=== PATIENT | female | born 1965 | race Caucasian/White ===

== ENCOUNTER → 2018-01-10 | Outpatient (CLI) | payer OTHER ==
[~2018-01-10] MED LIST: ALPR0.25 PO; LEVO25TA2 PO
== END | disposition home or self-care (01) ==
LOC: CFH 10:45
PROVIDERS: ATTEND Nurse Practitioner
DX: M51.34 Other intervertebral disc degeneration, thoracic region (principal); R07.9 Chest pain, unspecified; Z85.3 Personal history of malignant neoplasm of breast
CPT/HCPCS: 71045; 72072

== ENCOUNTER 2018-03-06 21:35 | Inpatient (IN) | payer OTHER ==
[~2018-03-06] VITALS: Ht 162.6 cm; Wt 79.0 kg
[2018-03-06] MEDS ORDERED: PROMETHAZINE 25 MG/ML, 1ML ONE (23:25)
[2018-03-06] MEDS ORDERED: HYDROmorphone 2 MG/ML, 1ML ONE (23:26)
[2018-03-06] MEDS ORDERED: PROMETHAZINE 25 MG/ML, 1ML IM ONE (23:30)
[2018-03-06] MEDS ORDERED: HYDROmorphone 2 MG/ML, 1ML IVPush PRN (23:30)
[2018-03-06] MEDS ORDERED: SODIUM CHLORIDE FLUSH 10ML SYR IVF ONE (23:30)
[2018-03-06 23:32] LABS: MICROSCOPIC NOT IND
[2018-03-06 23:38] LABS: CULTURE INDICATED? NO
[2018-03-06 23:43] LABS: BASOPHILS # (AUTO) 0.01 x10^3/uL (0-0.1); BASOPHILS % (AUTO) 0 % (0-1); EOSINOPHILS # (AUTO) 0.35 x10^3/uL (0-0.4); EOSINOPHILS % (AUTO) 4 % (1-7); LYMPHOCYTES # (AUTO) 1.11 x10^3/uL (1-3.4); LYMPHOCYTES % (AUTO) 14 % (22-44); MD NO; MEAN CORPUSCULAR HEMOGLOBIN 33.6 pg (27.0-34.8); MEAN CORPUSCULAR HGB CONC 32.3 g/dL (32.4-35.8); MEAN CORPUSCULAR VOLUME 104.1 fL (80-100); MEAN PLATELET VOLUME 9.6 fL (7.4-10.4); MONOCYTES # (AUTO) 0.68 x10^3/uL (0.2-0.8); MONOCYTES % (AUTO) 9 % (2-9); NEUTROPHILS # (AUTO) 5.81 x10^3/uL (1.8-6.8); NEUTROPHILS % (AUTO) 73 % (42-75); PLATELET COUNT 154 x10^3/uL (130-400); RED BLOOD COUNT 3.17 x10^6/uL (3.82-5.3); RED CELL DISTRIBUTION WIDTH 17.4 % (9.6-15.2)
[2018-03-06 23:47] LABS: ALBUMIN 2.5 g/dL (3.4-5.0); ANION GAP 10 mmol/L (5-15); CALCIUM 8.6 mg/dL (8.5-10.1); CHLORIDE 102 mmol/L (98-107)
[2018-03-06 23:54] LABS: ALANINE AMINOTRANSFERASE 56 U/L (12-78); ALKALINE PHOSPHATASE 139 U/L (45-117); BILIRUBIN,TOTAL 1.6 mg/dL (0.2-1.0); CREATININE 0.84 mg/dL (0.55-1.02); TOTAL PROTEIN 6.6 g/dL (6.4-8.2)
[2018-03-07] MEDS ORDERED: OMNIPAQUE 350 MG/ML, 100ML BOTTLE ONE (00:17)
[2018-03-07] MEDS ORDERED: CEFOTETAN PMX 1GM/50ML 50 ML IV ONE (01:30)
[2018-03-07] MEDS ORDERED: CEFOTETAN PMX 1GM/50ML 50 ML ONE (01:54)
[2018-03-07 02:59] VITALS: BP 116/74
[2018-03-07 06:50] VITALS: BP 120/75
[2018-03-07] MEDS ORDERED: OXYcodone IR 5MG TABLET PO PRN (07:00)
[2018-03-07] MEDS ORDERED: LABETALOL 5MG/ML, 20ML IVPush PRN (07:00)
[2018-03-07] MEDS ORDERED: PROMETHAZINE 25 MG/ML, 1ML IM PRN (07:00)
[2018-03-07] MEDS ORDERED: ONDANSETRON 2MG/ML, 2ML IVPush PRN (07:00)
[2018-03-07] MEDS ORDERED: POLYETHYLENE GLYCOL 17 GM PACKET PO PRN (07:00)
[2018-03-07] MEDS ORDERED: BISACODYL 10 MG SUPP PR PRN (07:00)
[2018-03-07] MEDS ORDERED: DOCUSATE 100 MG CAPSULE PO PRN (07:00)
[2018-03-07] MEDS ORDERED: hydrALAzine 20 MG/ML, 1ML IVPush PRN (07:00)
[2018-03-07] MEDS: NICOTINE 7 MG/24 HR PATCH.TD24 TD SCH (07:00)
[2018-03-07 07:54] LABS: FREE T4 (FREE THYROXINE) 0.7 ng/dL (0.76-1.46); THYROID STIMULATING HORMONE 6.93 mIU/L (0.358-3.740)
[2018-03-07] MEDS ORDERED: LORazepam 2 MG/ML, 1ML IVPush ONE (08:00)
[2018-03-07] MEDS ORDERED: ALBUTEROL SULFATE 2.5 MG/3 ML NPPB PRN (08:00)
[2018-03-07 08:01] LABS: HEMOGLOBIN A1C 5.1 % (4.2-6.3)
[2018-03-07] MEDS: morphine SULFATE 10 MG/ML, 1ML IVPush PRN ×2 (08:09→20:56)
[2018-03-07] MEDS: ONDANSETRON ODT 4 MG PO PRN (08:10)
[2018-03-07] MEDS ORDERED: ERGOCALCIFEROL 50,000 UNIT CAPSULE PO SCH (09:30)
[2018-03-07] MEDS: HEPARIN 5,000 UNITS/ML, 1ML SQ SCH ×2 (10:12→17:54)
[2018-03-07] MEDS: METRONIDAZOLE PMX 500MG/100ML 100 ML IV SCH ×3 (10:15→22:34)
[2018-03-07] MEDS: SODIUM CHLORIDE 0.9% 1,000 ML IV SCH ×2 (10:15→22:41)
[2018-03-07] MEDS: CEFOTETAN PMX 2GM/50ML 50 ML IV SCH (13:44)
[2018-03-07 13:57] VITALS: BP 108/65
[2018-03-07] MEDS ORDERED: POTASSIUM CHLORIDE 40 MEQ in SODIUM CHLORIDE 0.9% 500 ML IV ONE (18:00)
[2018-03-07 19:57] VITALS: BP_SYST 86
[2018-03-07] MEDS ORDERED: LORazepam 2 MG/ML, 1ML IVPush PRN (23:30)
[2018-03-08] MEDS: CEFOTETAN PMX 2GM/50ML 50 ML IV SCH ×2 (01:18→13:06)
[2018-03-08] MEDS: morphine SULFATE 10 MG/ML, 1ML IVPush PRN ×5 (01:27→20:47)
[2018-03-08 03:01] VITALS: BP 100/62
[2018-03-08] MEDS: METRONIDAZOLE PMX 500MG/100ML 100 ML IV SCH ×4 (04:11→22:17)
[2018-03-08 04:52] LABS: INTERNATIONAL NORMALIZED RATIO 0.94 (0.93-1.1); PROTHROMBIN TIME 9.8 Seconds (9.6-11.5)
[2018-03-08 04:53] LABS: MEAN CORPUSCULAR HEMOGLOBIN 34.5 pg (27.0-34.8); MEAN CORPUSCULAR HGB CONC 33.2 g/dL (32.4-35.8); MEAN CORPUSCULAR VOLUME 103.9 fL (80-100); RED BLOOD COUNT 2.58 x10^6/uL (3.82-5.3); RED CELL DISTRIBUTION WIDTH 17.5 % (9.6-15.2)
[2018-03-08 04:59] LABS: CHLORIDE 111 mmol/L (98-107)
[2018-03-08 05:13] LABS: ALANINE AMINOTRANSFERASE 35 U/L (12-78); ALBUMIN 1.9 g/dL (3.4-5.0); ALKALINE PHOSPHATASE 90 U/L (45-117); ANION GAP 7 mmol/L (5-15); BILIRUBIN,TOTAL 0.6 mg/dL (0.2-1.0); CALCIUM 7.3 mg/dL (8.5-10.1); CHOL/HDL RATIO 13.5; CHOLESTEROL, TOTAL 216 mg/dL (140-239); HDL CHOL % 7 % (28-40); HDL CHOLESTEROL (DIRECT) 16 mg/dL (40-60); LDL CHOLESTEROL,CALCULATED 154 mg/dL (54-169); LDL/HDL RATIO 9.6 (0.5-3.0); TOTAL PROTEIN 5.2 g/dL (6.4-8.2); TRIGLYCERIDES 232 mg/dL (50-200); VLDL CHOLESTEROL 46 mg/dL (0-25)
[2018-03-08 05:52] LABS: BASOPHILS # (AUTO) 0.02 x10^3/uL (0-0.1); BASOPHILS % (AUTO) 0 % (0-1); EOSINOPHILS # (AUTO) 0.45 x10^3/uL (0-0.4); EOSINOPHILS % (AUTO) 9 % (1-7); LYMPHOCYTES # (AUTO) 0.89 x10^3/uL (1-3.4); LYMPHOCYTES % (AUTO) 17 % (22-44); MD SCAN; MEAN PLATELET VOLUME 9.5 fL (7.4-10.4); MONOCYTES % (AUTO) 10 % (2-9); NEUTROPHILS # (AUTO) 3.35 x10^3/uL (1.8-6.8); NEUTROPHILS % (AUTO) 64 % (42-75); PLATELET COUNT 138 x10^3/uL (130-400)
[2018-03-08] MEDS: LEVOTHYROXINE 25 MCG TABLET PO SCH ×2 (06:00→06:17)
[2018-03-08] MEDS: NICOTINE 7 MG/24 HR PATCH.TD24 TD SCH (06:25)
[2018-03-08] MEDS: SODIUM CHLORIDE 0.9% 1,000 ML IV SCH ×3 (07:00→22:17)
[2018-03-08] MEDS: ONDANSETRON ODT 4 MG PO PRN (09:00)
[2018-03-08 09:19] VITALS: BP 114/77
[2018-03-08 12:16] LABS: MICROSCOPIC NOT IND
[2018-03-08 12:21] LABS: CULTURE INDICATED? NO
[2018-03-08 13:52] VITALS: BP 129/82
[2018-03-08 19:04] VITALS: BP 129/83
[2018-03-08] MEDS: LORazepam 2 MG/ML, 1ML IVPush PRN (20:47)
[2018-03-09 00:51] VITALS: BP 132/77
[2018-03-09] MEDS: CEFOTETAN PMX 2GM/50ML 50 ML IV SCH ×2 (01:55→15:51)
[2018-03-09 02:05] VITALS: BP 135/81
[2018-03-09] MEDS: METRONIDAZOLE PMX 500MG/100ML 100 ML IV SCH ×4 (04:15→21:56)
[2018-03-09] MEDS: LEVOTHYROXINE 25 MCG TABLET PO SCH ×2 (05:33→05:34)
[2018-03-09] MEDS: morphine SULFATE 10 MG/ML, 1ML IVPush PRN ×2 (05:34→16:10)
[2018-03-09 05:44] LABS: CHLORIDE 110 mmol/L (98-107)
[2018-03-09 05:54] LABS: BASOPHILS # (AUTO) 0.02 x10^3/uL (0-0.1); BASOPHILS % (AUTO) 0 % (0-1); EOSINOPHILS # (AUTO) 0.44 x10^3/uL (0-0.4); EOSINOPHILS % (AUTO) 8 % (1-7); LYMPHOCYTES % (AUTO) 15 % (22-44); MD NO; MEAN CORPUSCULAR HEMOGLOBIN 34.8 pg (27.0-34.8); MEAN CORPUSCULAR HGB CONC 33.4 g/dL (32.4-35.8); MEAN CORPUSCULAR VOLUME 104.3 fL (80-100); MEAN PLATELET VOLUME 8.9 fL (7.4-10.4); MONOCYTES # (AUTO) 0.49 x10^3/uL (0.2-0.8); MONOCYTES % (AUTO) 9 % (2-9); NEUTROPHILS # (AUTO) 3.49 x10^3/uL (1.8-6.8); NEUTROPHILS % (AUTO) 67 % (42-75); PLATELET COUNT 166 x10^3/uL (130-400); RED BLOOD COUNT 2.51 x10^6/uL (3.82-5.3); RED CELL DISTRIBUTION WIDTH 17.9 % (9.6-15.2)
[2018-03-09 05:56] LABS: ALBUMIN 1.7 g/dL (3.4-5.0); ALKALINE PHOSPHATASE 79 U/L (45-117); ANION GAP 10 mmol/L (5-15); BILIRUBIN,TOTAL 0.7 mg/dL (0.2-1.0); CALCIUM 6.1 mg/dL (8.5-10.1); CREATININE 1.02 mg/dL (0.55-1.02); TOTAL PROTEIN 4.6 g/dL (6.4-8.2)
[2018-03-09] MEDS: NICOTINE 7 MG/24 HR PATCH.TD24 TD SCH (06:08)
[2018-03-09 06:20] VITALS: BP 120/71
[2018-03-09] MEDS: POTASSIUM CHLORIDE 40 MEQ in SODIUM CHLORIDE 0.9% 500 ML IV SCH ×2 (08:43→15:51)
[2018-03-09 09:30] LABS: ALANINE AMINOTRANSFERASE 39 U/L (12-78)
[2018-03-09] MEDS: SODIUM CHLORIDE 0.9% 1,000 ML IV SCH (10:50)
[2018-03-09] MEDS ORDERED: KETOROLAC 30 MG/1 ML IV ONE (11:00)
[2018-03-09 14:00] VITALS: BP 134/85
[2018-03-09] MEDS ORDERED: SINCALIDE (KINEVAC) 5 MCG ONE (14:33)
[2018-03-09] MEDS: METHADONE 10 MG TABLET PO SCH ×3 (15:51→21:57)
[2018-03-09 18:58] VITALS: BP 132/84
[2018-03-09] MEDS: LORazepam 2 MG/ML, 1ML IVPush PRN (23:29)
[2018-03-10 01:07] VITALS: BP 132/80
[2018-03-10] MEDS: CEFOTETAN PMX 2GM/50ML 50 ML IV SCH ×2 (01:49→14:46)
[2018-03-10] MEDS: SODIUM CHLORIDE 0.9% 1,000 ML IV SCH (01:49)
[2018-03-10] MEDS: morphine SULFATE 10 MG/ML, 1ML IVPush PRN (01:49)
[2018-03-10] MEDS: METRONIDAZOLE PMX 500MG/100ML 100 ML IV SCH ×3 (03:44→20:16)
[2018-03-10] MEDS: LEVOTHYROXINE 25 MCG TABLET PO SCH (06:00)
[2018-03-10] MEDS: NICOTINE 7 MG/24 HR PATCH.TD24 TD SCH (06:00)
[2018-03-10 06:29] VITALS: BP 126/81
[2018-03-10 08:45] LABS: ALANINE AMINOTRANSFERASE 37 U/L (12-78); ALBUMIN 2.7 g/dL (3.4-5.0); ANION GAP 9 mmol/L (5-15); CALCIUM 8.9 mg/dL (8.5-10.1); CHLORIDE 106 mmol/L (98-107); CREATININE 1.29 mg/dL (0.55-1.02)
[2018-03-10 08:47] LABS: ALKALINE PHOSPHATASE 122 U/L (45-117); BILIRUBIN,TOTAL 0.8 mg/dL (0.2-1.0); TOTAL PROTEIN 7.2 g/dL (6.4-8.2)
[2018-03-10] MEDS: METHADONE 10 MG TABLET PO SCH ×3 (09:00→22:25)
[2018-03-10 09:10] LABS: BASOPHILS # (AUTO) 0.09 x10^3/uL (0-0.1); BASOPHILS % (AUTO) 1 % (0-1); EOSINOPHILS % (AUTO) 8 % (1-7); LYMPHOCYTES # (AUTO) 1.16 x10^3/uL (1-3.4); LYMPHOCYTES % (AUTO) 15 % (22-44); MD SCAN; MEAN CORPUSCULAR HEMOGLOBIN 34.2 pg (27.0-34.8); MEAN CORPUSCULAR HGB CONC 33.1 g/dL (32.4-35.8); MEAN CORPUSCULAR VOLUME 103.3 fL (80-100); MONOCYTES # (AUTO) 0.61 x10^3/uL (0.2-0.8); MONOCYTES % (AUTO) 8 % (2-9); NEUTROPHILS # (AUTO) 5.12 x10^3/uL (1.8-6.8); NEUTROPHILS % (AUTO) 68 % (42-75); PLATELET COUNT 246 x10^3/uL (130-400); RED BLOOD COUNT 3.31 x10^6/uL (3.82-5.3); RED CELL DISTRIBUTION WIDTH 17.7 % (9.6-15.2)
[2018-03-10] MEDS ORDERED: FLUCONAZOLE 400 MG/200 ML 200 ML IV SCH (10:00)
[2018-03-10] MEDS ORDERED: BUPIVACAINE/PF 0.5% ONE (10:03)
[2018-03-10] MEDS ORDERED: EPINEPHRINE 1 MG/ML, 1ML ONE (10:03)
[2018-03-10] MEDS ORDERED: FENTANYL PF 250 MCG/5ML ONE (10:17)
[2018-03-10] MEDS ORDERED: MIDAZOLAM 1 MG/ML, 2ML ONE (10:17)
[2018-03-10] MEDS ORDERED: GLYCOPYRROLATE 0.2MG/1ML, 5ML ONE (10:30)
[2018-03-10] MEDS ORDERED: CEFAZOLIN 1,000 MG ONE (10:30)
[2018-03-10] MEDS ORDERED: ONDANSETRON ODT 8 MG PO ONE (10:30)
[2018-03-10] MEDS ORDERED: NEOSTIGMINE 1 MG/ML, 10ML ONE (10:30)
[2018-03-10] MEDS ORDERED: ROCURONIUM 10 MG/ML,10ML ONE (10:30)
[2018-03-10] MEDS ORDERED: SCOPOLAMINE PATCH, 1.5MG PATCH.TD72 TD ONE (10:30)
[2018-03-10] MEDS ORDERED: DEXAMETHASONE 4 MG/ML, 5ML ONE (10:30)
[2018-03-10] MEDS ORDERED: OxyconTIN ER 10 MG TAB.ER PO ONE (10:30)
[2018-03-10] MEDS ORDERED: PROPOFOL 10 MG/ML, 20ML ONE (10:30)
[2018-03-10] MEDS ORDERED: SUCCINYLCHOLINE 20 MG/ML, 10ML ONE (10:30)
[2018-03-10] MEDS ORDERED: BUPIVACAINE/PF-EPI 0.5% 1:200K INFIL ONE (10:47)
[2018-03-10] MEDS ORDERED: OXYcodone 5 MG/5 ML ORAL.SOL UDC PO PRN (11:00)
[2018-03-10] MEDS ORDERED: ONDANSETRON ODT 8 MG PO PRN (11:00)
[2018-03-10] MEDS ORDERED: PROMETHAZINE 25 MG/ML, 1ML IV PRN (11:00)
[2018-03-10] MEDS ORDERED: MIDAZOLAM 1 MG/ML, 2ML IV PRN (11:00)
[2018-03-10] MEDS ORDERED: LABETALOL 5MG/ML, 20ML IV PRN (11:00)
[2018-03-10] MEDS ORDERED: PROMETHAZINE 12.5 MG SUPP PR PRN (11:00)
[2018-03-10] MEDS ORDERED: hydrALAzine 20 MG/ML, 1ML IV PRN (11:00)
[2018-03-10] MEDS ORDERED: ALBUTEROL SULFATE 2.5 MG/3 ML NPPB PRN (11:00)
[2018-03-10] MEDS ORDERED: FENTANYL PF 100 MCG/2ML ONE ×4 (11:05→13:04)
[2018-03-10] MEDS ORDERED: MEPERIDINE/PF 25MG/0.5ML ONE ×3 (11:42→13:04)
[2018-03-10] MEDS: MEPERIDINE/PF 25MG/0.5ML IVPush PRN ×2 (11:47→13:08)
[2018-03-10] MEDS: FENTANYL PF 100 MCG/2ML IV PRN ×5 (12:36→13:12)
[2018-03-10] MEDS ORDERED: MORPHINE SULFATE 4 MG/ML, 1ML ONE ×2 (12:37→12:48)
[2018-03-10] MEDS: MORPHINE SULFATE 4 MG/ML, 1ML IVPush PRN ×2 (12:40→12:50)
[2018-03-10] MEDS ORDERED: OXYcodone 5 MG/5 ML ORAL.SOL UDC ONE (13:05)
[2018-03-10 13:37] VITALS: BP 141/90
[2018-03-10] MEDS ORDERED: OXYcodone IR 5MG TABLET PO PRN (14:00)
[2018-03-10] MEDS: ACETAMINOPHEN 500 MG TABLET PO SCH ×2 (15:17→20:17)
[2018-03-10] MEDS: IBUPROFEN 600 MG TABLET PO SCH ×2 (16:42→22:25)
[2018-03-10] MEDS: LACTOBACILLUS 1GM/ PACKET PO SCH ×2 (17:35→23:53)
[2018-03-10 19:15] VITALS: BP 150/90
[2018-03-11] MEDS: SODIUM CHLORIDE 0.9% 1,000 ML IV SCH (00:04)
[2018-03-11 01:54] VITALS: BP 118/75
[2018-03-11] MEDS: METRONIDAZOLE PMX 500MG/100ML 100 ML IV SCH ×2 (02:29→07:56)
[2018-03-11] MEDS: ACETAMINOPHEN 500 MG TABLET PO SCH ×2 (02:32→07:55)
[2018-03-11] MEDS: CEFOTETAN PMX 2GM/50ML 50 ML IV SCH (03:37)
[2018-03-11] MEDS: LEVOTHYROXINE 25 MCG TABLET PO SCH (06:18)
[2018-03-11] MEDS: NICOTINE 7 MG/24 HR PATCH.TD24 TD SCH (06:19)
[2018-03-11] MEDS: METHADONE 10 MG TABLET PO SCH (07:56)
[2018-03-11 08:44] VITALS: BP 124/77
[2018-03-11] MEDS: IBUPROFEN 600 MG TABLET PO SCH (09:00)
[2018-03-11] MEDS: LACTOBACILLUS 1GM/ PACKET PO SCH (09:15)
[2018-03-11] MEDS ORDERED: ERGO500017 PO (11:29)
[2018-03-11] MEDS ORDERED: METH-356 PO (11:29)
[2018-03-11] MEDS ORDERED: ACID1GRA3 PO (11:29)
[2018-03-11] MEDS ORDERED: TRAM50TA2 PO (11:30)
[2018-03-11] MEDS ORDERED: POLY17PO5 PO (11:30)
[2018-03-11] MEDS ORDERED: ONDA4TAB13 PO (11:30)
[2018-03-11] MEDS ORDERED: NICO-485 TD (11:30)
== END 2018-03-11 12:25 | disposition home or self-care (01) | DRG 417 ==
LOC: ED 23:49 → EDIP 03-07 01:37 → 4NOR 03-07 02:50
PROVIDERS: ADMIT Internal Medicine; ATTEND Internal Medicine
PROC: 0FT44ZZ Resection of Gallbladder, Percutaneous Endoscopic Approach (ICD-10-PCS; principal; 2018-03-10 10:30)
DX: K85.10 Biliary acute pancreatitis without necrosis or infection (principal); E43 Unspecified severe protein-calorie malnutrition; N17.0 Acute kidney failure with tubular necrosis; J90 Pleural effusion, not elsewhere classified; K76.0 Fatty (change of) liver, not elsewhere classified; R65.10 Systemic inflammatory response syndrome (SIRS) of non-infectious origin without acute organ dysfunction; D64.9 Anemia, unspecified; E03.9 Hypothyroidism, unspecified; E55.9 Vitamin D deficiency, unspecified; E66.9 Obesity, unspecified; E78.1 Pure hyperglyceridemia; E78.5 Hyperlipidemia, unspecified; E87.6 Hypokalemia; F17.210 Nicotine dependence, cigarettes, uncomplicated; F41.9 Anxiety disorder, unspecified; K80.20 Calculus of gallbladder without cholecystitis without obstruction; K82.8 Other specified diseases of gallbladder; Z80.0 Family history of malignant neoplasm of digestive organs; Z80.8 Family history of malignant neoplasm of other organs or systems; Z85.3 Personal history of malignant neoplasm of breast; Z90.13 Acquired absence of bilateral breasts and nipples; Z92.3 Personal history of irradiation; Z92.21 Personal history of antineoplastic chemotherapy; Z68.29 Body mass index [BMI] 29.0-29.9, adult; Z88.0 Allergy status to penicillin
CPT/HCPCS: 36415; 71045; 74150; 74177; 74181; 76700; 78227; 80053; 80061; 80307; 81003; 82140; 82306; 82607; 83036; 83605; 83690; 83735; 83880; 84145; 84439; 84443; 84703; 85025; 85610; 87040; 88304; 96365; 96372; 96375; J0171; J0690; J1100; J1170; J1450; J1644; J1885; J2175; J2250; J2550; J2704; J2710; J3010; J3480; J3490; Q0162; Q9967; A9537; C9898; J0330; J2060; J2270; J2805; J7030; J7040; S0074